=== PATIENT | male | born 1975 | race Caucasian/White ===

== ENCOUNTER 2017-06-15 08:53 | Day surgery (SDC) | payer OTHER ==
[~2017-06-15 08:53] MED LIST: Bupivacaine 0.25% SDV* 30 ML ONE
[2017-06-15] MEDS ORDERED: Clindamycin 900 MG IVPREMIX(* 900 MG/50 ML SDV IV ONE (09:06)
[2017-06-15] MEDS ORDERED: DiMENhydriNATE IV* 50 MG/ML VIAL IV PUSH PRN (11:40)
[2017-06-15] MEDS ORDERED: fentaNYL* 50 MCG/ML 2 ML VIAL (100 MCG VIAL) IV PRN (11:40)
[2017-06-15] MEDS ORDERED: HYDROmorphone INJ* 1 MG/ML CARPUJECT SYRINGE IV PRN (11:40)
[2017-06-15] MEDS ORDERED: fentaNYL* 50 MCG/ML 2 ML VIAL (100 MCG VIAL) ONE (12:04)
[2017-06-15] MEDS ORDERED: Midazolam* 1 MG/ML 2 ML VIAL (2 MG) ONE (12:04)
[2017-06-15] MEDS ORDERED: Propofol* 10 MG/ML 20 ML BTL IV PUSH ONE (12:08)
[2017-06-15 14:13] VITALS: BP 138/89
--- NOTE | 2017-06-17 00:40 | OP ---
OPERATIVE REPORT: DATE OF OPERATION: 06/15/17 DATE OF : 73 SURGEON: Ab Perales MD BROOD STATION MANAGER: MONIKA Plascencia An assistant teacher primary was needed for the entirety of the procedure to aid in positioning of the arm and retra ction. ANESTHESIOLOGIST: Dr. Mckay. ANESTHESIA: General. PRE-OP DIAGNOSIS: Left cubital tunnel syndrome. POST-OP DIAGNOSIS: Left cubital tunnel syndrome. PROCEDURE PERFORMED: Left in situ cubital tunnel release with excision of anconeus epitrochlearis m uscle. INDICATIONS: Nikos is 42. He has a pretty significant peripheral ulnar nerve compression, this mcleod s been progressive. We had talked about his treatment options. He had wanted to proceed with guy pandya. We did talk about risks and benefits. ESTIMATED BLOOD LOSS: 5 mL. COMPLICATIONS: None. FINDINGS: He had an anconeus epitrochlearis muscle. DESCRIPTION OF PROCEDURE: Nikos was seen in the preoperative holding area. The correct side, site , and procedure were identified. We came back to the operating room. Anesthesia was induced, the a rm was prepped and draped in the usual fashion. A time-out was performed. I began by exsanguinating the arm with the Esmarch and the tourniquet was inflated to 250 mmHg. A c urvilinear incision was made centered over Wilkins's ligament and extended proximally and distally. Dissection was carried down with the Bovie proximally and with the tenotomy scissors distally. The medial antebrachial cutaneous nerve was protected throughout. I then began to release proximal thr ough Wilkins's ligament where a thick medial intermuscular septum was released, a very thick fascia layer was released all the way past the arcade of [place]. I went ahead and excised a portion of the medial intermuscular septum as well that was very rigid and compressive. When I got down to the Wilkins's ligament, the anconeus epitrochlearis was identified. This was excised in its entirety. I then released the remainder of Wilkins's ligament and then the superficial FCU fascia, I split th e two edges of the FCU and released the subfacial layer distally several centimeters past the medial epicondyle. There was absolutely no compression on the nerve. Once I had completed the release, I checked flexion and extension. There was no subluxation, so we irrigated out the wound. Hemostasi s was obtained with Bovie. The subcutaneous tissue was reapproximated with 0 Vicryl. The skin was closed with 4-0 nylon. Operative area was infiltrated with 0.25% Marcaine. The wound was dressed w ith Xeroform, 4x4's, ABD, sterile Webril and an Jorge bandage. Tourniquet was deflated. He was then w oken up and taken to the recovery room in stable condition. [id number] #: [id number]
== END 2017-06-15 14:04 | disposition home or self-care (01) ==
LOC: OREAST 08:53
PROVIDERS: ATTEND Orthopaedic Surgery Hand Surgery
DX: G56.22 Lesion of ulnar nerve, left upper limb (principal); F17.210 Nicotine dependence, cigarettes, uncomplicated; I10 Essential (primary) hypertension; Z68.33 Body mass index [BMI] 33.0-33.9, adult; K21.9 Gastro-esophageal reflux disease without esophagitis
CPT/HCPCS: J2250; J2704; J3010